=== PATIENT | male | born 1970 | race Caucasian/White ===

== ENCOUNTER 2021-05-11 10:58 | Inpatient (IN) ==
--- NOTE | 2021-04-30 10:25 | Anesthesiology Consultation ---
Date of Service April 30, 2021 Assessment & Plan (1) Encounter for pre-operative examination: Chart Review Chart Review: Acceptable Risk for Surgery and Patient NOT seen in Pre Admission Testing History Surgery Operation Date: 05/11/21 12:25 Proposed Procedures p L4-S1 Revision Decompression Fusion Spinal Cord Monitoring - Cuco Peace DO Height/Weight Height: 5 ft 7 in Weight: 81.647 kg Allergies Allergy/AdvReac Type Severity Reaction Status Date / Time No Known Allergies Allergy Verified 04/29/21 14:54 Medications Home Medications Medication Instructions Recorded Confirmed Last Taken multivitamin 1 tab PO QAM 04/29/21 04/29/21 Unknown psyllium husk 3.4 gram/5.4 gram 1 tsp PO TID 04/29/21 04/29/21 Unknown oral powder (Metamucil) Past Medical History Medical History Back pain Past Family History Family History Other No known health problems Past Surgical History Surgical History History of cholecystectomy History of discectomy LUMBAR History of tonsillectomy History of vasectomy Social History Smoking Status: Former smoker Do You Dip or Chew Tobacco: No Smoking End Date: QUIT 21 YRS AGO Hx Alcohol Use: No Hx Substance Use: No Lab Results Anesthesia Preop Results Results Anesthesia Widget: WBC 10.26 K/uL (4.8-10.8) 04/29/21 Hgb 17.7 g/dL (14.0-18.0) 04/29/21 Hct 50.3 % (42-52) 04/29/21 Plt 268 K/uL (130-400) 04/29/21 Na 139 mmol/L (136-145) 04/29/21 K 4.3 mmol/L (3.5-5.1) 04/29/21 Cl 106 mmol/L (98-107) 04/29/21 CO2 26 mmol/L (21-32) 04/29/21 BUN 12 mg/dl (7-18) 04/29/21 Creat 1.05 mg/dl (0.6-1.4) 04/29/21 Glucose Level 103 mg/dl (70-99) H 04/29/21 PT 9.8 Seconds (9.0-12.0) 04/29/21 INR 1.0 (0.9-1.1) 04/29/21 Urine Color Yellow 04/29/21 Urine Appearance Clear (Clear) 04/29/21 Urine pH 5.5 (4.5-7.5) 04/29/21 Urine Specific [place] 1.018 (1.000-1.030) 04/29/21 Urine Protein Negative (Negative) 04/29/21 Urine Glucose (UA) Negative (Negative) 04/29/21 Urine Ketones Negative (Negative) 04/29/21 Urine Blood Negative (Negative) 04/29/21 Urine Nitrite Negative (Negative) 04/29/21 Urine Bilirubin Negative (Negative) 04/29/21 Urine Urobilinogen Negative (Negative) 04/29/21 Urine Leukocyte Esterase Negative (Negative) 04/29/21 Blood Type O Positive 04/29/21 Antibody Screen NEGATIVE 04/29/21 Testing Electrocardiogram Date: 04/29/21 Normal sinus rhythm, 60 bpm. Chest X-Ray Date: 04/29/21 No acute process.
--- NOTE | 2021-05-10 11:37 | History & Physical Report ---
Date of Service May 10, 2021 Assessment & Plan (1) Lumbar disc herniation with radiculopathy: Plan: Assessment recurrent lumbar disc herniation on the left with severe radiculopathy. Plan at this time is finished its course of nonoperative care still markedly limited and is requiring surgical intervention. Will require a L4-S1 revision decompression fusion. Hopefully this will help with his severe radiculopathy and halt the progression of neuro deficit. History of Present Illness Chief Complaint: Back and left leg pain Primary Care Provider: NO PCP This is a 51-year-old male presents with marked clinical status bleeding in January of this year after an injury at work. Describes significant left lower ex tremity pain numbness and tingling. It is markedly limiting in nature. He has been unable to work. He has failed extensive course of nonoperative care. Allergies Allergy/AdvReac Type Severity Reaction Status Date / Time No Known Allergies Allergy Verified 04/29/21 14:54 Home Medications Medication Instructions Recorded Confirmed Type multivitamin 1 tab PO QAM 04/29/21 04/29/21 History psyllium husk 3.4 gram/5.4 gram 1 tsp PO TID 04/29/21 04/29/21 History oral powder (Metamucil) Past Med/Surg History Medical History Back pain Surgical History History of cholecystectomy History of discectomy LUMBAR History of tonsillectomy History of vasectomy Family History Other No known health problems Social History (Updated 04/29/21 @ 15:16 by Dia Richardson RN) Smoking Status: Former smoker Smoking End Date: QUIT 21 YRS AGO; Second Hand Exposure: Yes (FATHER SMOKED); Do You Dip or Chew Tobacco: No; Hx Alcohol Use: No Hx Substance Use: No Preferred Language: Ghanaian Communication Ability: Effective Commodities Manager Required: No Beliefs That Will Affect Care: None Current Living Situation: Spouse and Family current occupational status: employed current occupation: ASSISTANT VICE PRESIDENT Other Information That Helps Us Care for You: No Feels Safe at Home: Yes Safety Concerns: Feels Safe At This Time Assistive Devices: None Physical Exam Physical Exam: Patient is alert and oriented Heart regular rhythm Lungs clear to auscultation Patient does exhibit positive tension signs on the left with a 4-/5 left dorsiflexion extensor hallucis longus compared to 5 5 on the right.
[~2021-05-11 10:58] MED LIST: ACETAMINOPHEN 500 MG TAB PO SCH; CeleBREX 200 MG CAP PO SCH; DEXAMETHASONE SOD INJ 4 MG/ML VIAL ONE; GABAPENTIN 900 MG DOSE PO SCH; LIDOCAINE 2% 2 ML VIAL/AMP(20MG/ML) INFIL ONE; MIDAZOLAM HCL 1 MG/ML 2ML VIAL ONE; ONDANSETRON INJ 2 MG/ML 2 ML VIAL ONE; PROPOFOL IV EMULSION 10 MG/ML 20 ML VIAL IV ONE; ROCURONIUM BROMIDE 10 MG/ML 5 ML VIAL IV ONE; ceFAZolin 2000MG 2,000 MG/15 ML SYR IV SCH; fentaNYL citrate 100 MCG/2 ML VIAL ONE
[2021-05-11] MEDS ORDERED: ACETAMINOPHEN 500 MG TAB ONE (11:12)
[2021-05-11] MEDS ORDERED: CeleBREX 200 MG CAP ONE (11:13)
[2021-05-11] MEDS ORDERED: GABAPENTIN 300 MG CAP ONE (11:13)
[2021-05-11] MEDS ORDERED: ATROPINE SULFATE 0.1 MG/ML 10ML SYR IV PRN (11:17)
[2021-05-11] MEDS ORDERED: ePHEDrine sulfate 50 MG/ML AMP IV PRN (11:17)
[2021-05-11] MEDS ORDERED: fentaNYL citrate 100 MCG/2 ML VIAL IV PRN (11:17)
[2021-05-11] MEDS ORDERED: HYDROmorphone INJ 1 MG/ML SYRINGE IV PRN ×2 (11:17→16:09)
[2021-05-11] MEDS ORDERED: ONDANSETRON INJ 2 MG/ML 2 ML VIAL IV PRN ×2 (11:17→16:09)
[2021-05-11] MEDS ORDERED: BUPIVACAINE 0.5 % 5 MG/1 ML MPF 30ML VIAL ONE (11:42)
[2021-05-11] MEDS ORDERED: EPINEPHrine INJ 1 MG/ML AMP ONE (11:42)
--- NOTE | 2021-05-11 11:42 | History & Physical Bridge Note ---
Date of Service May 11, 2021 History & Physical Bridge Note I have examined the patient, reviewed the History & Physical and in the interval since the performance of the History & Physical I have noted the following changes of clinical significance: no changes noted
[2021-05-11 11:46] LABS: Partial Thromboplastin Time 26.2 Seconds (21.0-31.0)
[2021-05-11] MEDS: LR 500ML BOLUS, THEN 15ML/HR IV SCH (11:47)
[2021-05-11] MEDS ORDERED: KETAMINE 50 MG/5 ML SYRINGE ONE (12:31)
[2021-05-11] MEDS ORDERED: HYDROmorphone INJ 2 MG/ML SYR/VIAL ONE (12:48)
[2021-05-11] MEDS ORDERED: ROCURONIUM BROMIDE 10 MG/ML 5 ML VIAL IV ONE ×2 (12:53)
[2021-05-11] MEDS ORDERED: FLOSEAL HEMOSTATIC MATRIX 10ML TOP ONE (12:59)
--- NOTE | 2021-05-11 14:10 | Operative Report ---
Post Operative Report Pre & Post Diagnosis Operation Date: 05/11/21 12:25 Pre-Op Diagnosis: L4-S1 Lumbar disc Herniation with Radiculopathy Post-Op Diagnosis: L4-S1 Lumbar disc Herniation with Radiculopathy I identified the patient and participated in the time-out.: Yes Procedure Operation Date: 05/11/21 12:25 Actual Procedures #1 revision decompression with bilateral medial facetectomies and foraminotomies L4-5 L5-S1. #2 posterior spinal fusion L4-5 L5-S1. #3 placement of posterior instrumentation L4-5 L5-S1. #4 interbody fusion L4-5 L5-S1. #5 placement peek cage 14 x 26 mm at L for L5 and 12 x 26 mm at L5-S1. #6 placement of locally harvested morselized autograft in the posterior gutters. #7 placement of I factor combined with Vitoss in the interbody space and posterior lateral gutters. Surgeon Cuco Peace, Printed Circuit Layout Taper Mariah Saldaña Estimated Blood Loss 100 Findings Consistent with Post-Op Diagnosis Specimens None Indications This is a 51-year-old male who presents with above-mentioned diagnosis after failing course of nonoperative care is here for surgical invention. Description of Procedure Patient was met with identified informed consent obtained. Patient was then taken to the operative suite underwent intubation placed in a prone position the Tyron table top Zaid frame. All bony prominences well-padded eyes inspected to ensure no external pressure placed upon the bed at this point, spine is prepped and draped in a sterile fashion. Utilizing the previous incision site sharp dissection with assistance of Bovie cautery was performed down to and exposing the remaining lamina and transverse processes of L4-L5 and the sacral ala bilaterally. From a caudal cephalad fashion revision complete laminectomy of L5 and L4 was performed including bilateral medial facetectomies and foraminotomies addressing all stenosis. Also identified evidence of a herniated free fragment at L5-S1 the left. After complete decompression pedicle screws were placed in L4-L5 and S1 levels bilaterally with assistance of fluoroscopy and appropriately sized dena placed. By way of a transforaminal approach on the left complete discectomy of L5-S1 was performed endplates curetted to subcortical being bone and a 12 x 26 mm peek cage filled with I factor tapped in position. Then proceeded L4-L5 and again by way of a transforaminal portion left complete discectomy performed endplates curetted to subcortically bone and a 14 x 26 mm peek cage filled with I factor tapped in position. The rods were then compressed locked into final position bilaterally. The transverse processes of L4 and L5 and the sacral ala burred to subcortically bone. I factor combined with Vitoss and locally harvested morselized autograft was placed in the posterior gutters. 15 round MELANIE drain inserted. Incision then closed with 1 Vicryl to fascia 2-0 Vicryl subcutaneously and 4 Monocryl for final skin closure. Steri-Strip sterile dressings placed. Patient will continue PACU stable condition. Please note spinal cord monitoring visualized at the procedure no changes noted. Lastly Mariah Saldaña was present at the entire procedure and while the patient positioning complex portions of the surgery and final skin closure. I attest to the content of the Intraoperative Record and any orders documented therein. Any exceptions are noted below.
--- NOTE | 2021-05-11 14:18 | Fluoroscopy Report ---
FL lumbar spine 2-3V CLINICAL HISTORY: L4-S1 DECOMPRESSION AND FUSION COMPARISON STUDY: None. FLUOROSCOPY TIME: 18 seconds. FINDINGS: 2 fluoroscopic spot images of the lumbar spine demonstrate posterior decompression and fusi on from L4 through S1 with pedicle screws and rods. The hardware is intact. Disc spaces are in place. IMPRESSION: Fluoroscopy provided for L4-S1 posterior decompression and fusion ACT 112: Negative or not required by law. Electronically signed by: Rodrigo Valle M.D. 05/11/2021 2:16 PM
--- NOTE | 2021-05-11 15:04 | Anesthesiology Progress Note ---
Date of Service May 11, 2021 Anesthesia Post Procedure Vital Signs Vital Signs: Temp Pulse Pulse Resp BP BP Pulse Ox 05/11/21 15:00 97.5 F L 73 14 122/83 94 05/11/21 14:50 72 12 124/83 94 05/11/21 14:40 71 12 117/83 96 05/11/21 14:30 86 12 115/72 98 05/11/21 14:21 96.8 F L 96 H 18 117/91 96 05/11/21 11:34 98.2 F 75 20 141/90 H 96 Pain Intensity Back: Pain Intensity: 2 Transfer of Care Handoff Completed per policy Notes Mental Status: alert / awake / arousable and participated in evaluation Patient Amnestic to Procedure: Yes Nausea / Vomiting: adequately controlled Pain: adequately controlled Airway Patency, RR, SpO2: stable & adequate BP & HR: stable & adequate Hydration State: stable & adequate Anesthetic Complications: no major complications apparent and Pt Satisfied with anesthetic care
[2021-05-11] MEDS ORDERED: LORazepam 0.5 MG/1 ML VIAL IV PRN (16:09)
[2021-05-11] MEDS ORDERED: ONDANSETRON 4 MG OD TAB PO PRN (16:09)
[2021-05-11] MEDS ORDERED: ACETAMINOPHEN 500 MG TAB PO PRN (16:09)
[2021-05-11] MEDS ORDERED: traMADol HCL 50 MG TABLET PO PRN (16:09)
[2021-05-11] MEDS ORDERED: hydrOXYzine HCl 25 MG TAB PO PRN (16:09)
[2021-05-11] MEDS ORDERED: FAMOTIDINE 20 MG TAB PO PRN (16:09)
[2021-05-11] MEDS ORDERED: DO NOT ADMINISTER FLU VACCINE PRN (16:09)
[2021-05-11] MEDS ORDERED: HYDROmorphone INJ 0.5 MG/0.5 ML SYR IV PRN (16:09)
[2021-05-11] MEDS ORDERED: bisacodyL 10 MG SUPP PR PRN (16:09)
[2021-05-11] MEDS ORDERED: MAGNESIUM HYDROXIDE SUSP 30 ML UDC PO PRN (16:09)
[2021-05-11] MEDS ORDERED: NALOXONE HCL 0.4 MG/1 ML VIAL/CARP IV PRN (16:09)
[2021-05-11] MEDS ORDERED: PROMETHAZINE HCL 12.5 MG in SODIUM CHLORIDE 0.9% 50 ML IV PRN (16:09)
[2021-05-11] MEDS ORDERED: DO NOT ADMINISTER PNEUMOCOCCAL VACCINE PRN (16:09)
[2021-05-11] MEDS ORDERED: ACETAMINOPHEN 1,000 MG/100 ML VIAL IV PRN (16:09)
[2021-05-11] MEDS ORDERED: diphenhydrAMINE Capsule 25 MG CAP PO PRN (16:09)
[2021-05-11] MEDS ORDERED: METOCLOPRAMIDE HCL INJ 5 MG/ML 2 ML VIAL IV PRN (16:09)
[2021-05-11] MEDS ORDERED: ALUMINUM/MAGNESIUM SUSP 30 ML UDC PO PRN (16:09)
[2021-05-11] MEDS ORDERED: SOD PHOSPHATE/SOD BIPHOSPHATE ENEMA 132 ML BTL PR PRN (16:09)
[2021-05-11] MEDS: LACTATED RINGER'S 1,000 ML IV SCH (16:47)
[2021-05-11] MEDS: KETOROLAC 30 MG/ML VIAL IV SCH ×2 (16:48→23:03)
[2021-05-11] MEDS: DOCUSATE SODIUM/SENNA 50/8.6MG TAB PO SCH (19:52)
[2021-05-11] MEDS: ceFAZolin 2000MG 2,000 MG/15 ML SYR IV SCH (19:53)
[2021-05-11] MEDS: LORazepam 0.5 MG TAB PO PRN (23:03)
[2021-05-12] MEDS: LACTATED RINGER'S 1,000 ML IV SCH (01:53)
[2021-05-12] MEDS: ceFAZolin 2000MG 2,000 MG/15 ML SYR IV SCH (03:59)
[2021-05-12] MEDS: KETOROLAC 30 MG/ML VIAL IV SCH ×2 (04:00→10:56)
[2021-05-12] MEDS: POLYETHYLENE (MIRALAX) 17 GM PACK PO SCH ×3 (05:57→20:18)
[2021-05-12] MEDS: LR 500ML BOLUS, THEN 15ML/HR IV SCH (06:01)
[2021-05-12 06:59] LABS: Basophils # (auto) 0.01 K/uL (0-0.2); Hemoglobin 14.8 g/dL (14.0-18.0); Immature Granulocytes # (auto) 0.07 K/uL (0.00-0.02); Immature Granulocytes % (auto) 0.3 %; Lymphocytes % (auto) 5.6 %; Mean Corpuscular Hgb Conc 35.2 g/dL (32-36); Mean Corpuscular Volume 88.1 fL (80-100); Mean Platelet Volume 9.4 fL (7.4-10.4); Monocytes # (auto) 1.57 K/uL (0.11-0.59); Monocytes % (auto) 7.4 %; Neutrophils # (auto) 18.46 K/uL (1.4-6.5); Neutrophils % (auto) 86.7 %; Platelet Count 267 K/uL (130-400); RDW Coefficient of Variation 13.3 % (11.5-14.5); RDW Standard Deviation 43.2 fL (36.4-46.3); Red Blood Count 4.77 M/uL (4.7-6.1); White Blood Count 21.31 K/uL (4.8-10.8)
[2021-05-12 07:31] LABS: BUN Creatinine Ratio 17.3 (10-20); Calcium 8.9 mg/dl (8.5-10.1); Creatinine Clr Calc Pharmacy 92.2 ml/min; Est GFR (African American) 100.8 ml/min; Est GFR (Non-African American) 86.9 ml/min; Potassium 4.6 mmol/L (3.5-5.1)
--- NOTE | 2021-05-12 08:06 | Orthopedic Progress Note ---
Date of Service May 12, 2021 Assessment & Plan (1) Lumbar disc herniation with radiculopathy: Plan: At this time initiate physical therapy monitor his MELANIE output possible discharge home or Monday. Admission and Anticipated Discharge Date Admission Date: May 11, 2021 Subjective Back pain controlled leg symptoms markedly improved Physical Exam Physical Exam: Patient is comfortable sitting in bed. Is good strength testing. Results & Data ([facility]) Vital Signs (Past 12 Hours) Vital Signs Temp Pulse Resp BP Pulse Ox 05/12/21 07:40 36.6 C 71 16 110/71 98 05/12/21 04:06 36.5 C 66 16 100/62 93 05/11/21 22:39 36.5 C 84 15 125/85 95
[2021-05-12] MEDS: MULTIVITAMIN TAB PO SCH (09:17)
[2021-05-12] MEDS: LORazepam 0.5 MG TAB PO PRN (19:51)
[2021-05-12] MEDS: oxyCODONE HCL IR 5 MG TAB (IMMEDIATE RELEASE) PO PRN (19:51)
[2021-05-12] MEDS: DOCUSATE SODIUM/SENNA 50/8.6MG TAB PO SCH (20:18)
[2021-05-13] MEDS: oxyCODONE HCL IR 5 MG TAB (IMMEDIATE RELEASE) PO PRN ×2 (04:37→09:04)
[2021-05-13] MEDS: MULTIVITAMIN TAB PO SCH (07:36)
--- NOTE | 2021-05-13 08:24 | Discharge Summary ---
Date of Service May 13, 2021 Admission HPI Per Admitting Provider This is a 51-year-old male presents with marked clinical status bleeding in January of this year after an injury at work. Describes significant left lower extremity pain numbness and tingling. It is markedly limiting in nature. He has been unable to work. He has failed extensive course of nonoperative care. Admission Exam (Per Admitting) Constitutional WD/WN, vitals as above Eyes normal visual garay by confrontation ENMT external ear and nose normal, oropharynx normal Neck normal visual inspection Respiratory normal respiratory effort Cardiovascular Extremities: normal capillary refill Gastrointestinal (Abdomen) Inspection/Auscultation: abdomen normal to inspection Musculoskeletal no cyanosis or clubbing, extremities motor strength 5/5 Extremities: extremities normal to inspection and strength 5/5 throughout Skin no rashes, warm and dry Neurologic normal touch/pain/proprioception and moves all extremities Psychiatric A+Ox3, euthymic affect Discharge Data Procedures Performed Operation Date: 05/11/21 12:25 Actual Procedures p L4-S1 Revision Decompression and Fusion with Applicaiton of iFactor Bone Graft; Interbody Cage L4-L5 and L5-S1, Spinal Cord Monitoring(Not Applicable) - Cuco Peace DO Hospital Course (1) Lumbar disc herniation with radiculopathy: Patient had an uneventful hospital course being discharged home on postoperative day 2 status post revision decompression instrumented fusion L4- S1. He has had a bowel movement. He is up and ambulatory. He is making great progress in physical therapy. Lab values have been stable. Lower extremity symptoms have resolved. Back pain is controlled. Discharge Instructions ACTIVITY RECOMMENDATIONS: SELF CARE INSTRUCTIONS AFTER THORACIC/LUMBAR FUSIONS 1. You may walk to your tolerance. It is good exercise for your legs and back. Expect some back and intermittent leg aches and pains. 2. You may perform "counter-top" level activities (make a sandwich, jaya with a project, etc.). 3. No bending or lifting of more than 10 pounds or back twisting of any nature (roll like a log when turning in bed). 4. You may ride in a car for 20-30 minutes at a time. No driving until after your first visit with your doctor. 5. Frequent changes of position and restricting sitting to 30 minutes at a time will help limit the amount of back spasms and stiffness you may experience. 6. You may discontinue the use of ambulatory aids (cane, crutches, etc.) once your strength and confidence allow. 7. You may grain mill products inspector the shower and let water strike your incision when you arrive home at least once daily. Do not take a tub bath, sit in a hot tub or go into a swimming pool until after your first recheck in the office. SPECIAL CARE INSTRUCTIONS: VERY IMPORTANT TO READ AND REVIEW A. Your surgical incision has been closed with a cosmetic suture under the skin that will dissolve in about 6 weeks. In 14 days, you can use a pair of clean scissors and cut the suture that is left outside of the skin at the ends of your incision. 1. The small skin tapes can be removed 7 days after surgery if they have not fallen off by that point. 2. You may keep the wound open to air as much as possible to promote healing after post-op day number 5 unless told otherwise by your doctor. 3. If you think the wound looks like it is becoming infected (redness or worsening drainage) and/or you are experiencing fever, chill or worsening back pain and muscle spasms, contact the office so that we may evaluate you as soon as possible. B. Complications are uncommon, but please contact us if you have any signs or symptoms of: 1. wound infection (fever higher than 102.5 degrees F, redness, separation of wound, drainage, or increasing pain from the incision) 2. blood clots in legs (pain, swelling, redness and warmth in legs) 3. urinary tract infection (fever higher than 102.5 degrees F, burning upon urination or increased frequency of urination) 4. nerve problems (inability to walk on your toes or heels, numbness, loss of bowel or bladder control) 5. any other symptoms that concern you C. Please call the office at if you have any concerns or questions about your operation or recovery. D. No smoking! Smoking drastically decreases the chance of a solid fusion. E. Do not take any anti-inflammatory medications (Indocin, Advil, Motrin, Aspirin, Naprosyn, etc.) as these may inhibit the chance of a solid fusion. Tylenol is okay to take for pain. MANAGING PAIN AFTER SPINAL SURGERY 1. Narcotic medication is intended for short-term use and will be provided for surgical pain. Surgical pain usually lasts for a period of 4-6 weeks. Narcotic medication includes Percocet, Vicodin, Darvocet, Tylenol #3 or Lortab. 2. Longer-term pain is more appropriately treated with non-narcotic medication such as Tylenol ES. 3. Muscle spasm is not appropriately treated with narcotics. Muscle relaxers such as Soma, Flexeril or Skelaxin can be used along with Tylenol ES. 4. Remember that we all live with some "aches and pains". This is not unusual or uncommon after an injury or as we get older. a. Back pain is expected and may include muscle spasms for 4 to 6 weeks after surgery. The pain should gradually improve. If the pain worsens for no apparent reason, please contact the office. b. Intermittent leg pain may also be experienced and should not be concerned about unless it worsens for no apparent reason. If so, please contact the office. 5. We will provide appropriate medication within the normal guidelines of their prescribed use. We will also be very cautious and aware of potential abuse and extended duration of patients' medication needs. a. Pain medications are for your comfort and to assist with sleep and rest so that the tissue can heal. They are not provided in order to return to normal activity and should not be used through the day. To do so or worsening pain at night can result from ongoing tissue damage and development of tolerance to the prescribed medicine. 6. Please allow 2-3 days to process refills. Prescriptions will not be mailed but must be picked up at the office. FOLLOW UP VISIT: Keep your scheduled follow-up appointment. Any questions, please call the office at .
[2021-05-13] MEDS ORDERED: dexAMETHasone 8 MG in SYRINGE 0 ML IV SCH (09:00)
--- NOTE | 2021-05-21 09:25 | Coding Query ---
CODING QUERY To promote full compliance with coding requirements relating to patient care, provider participation is requested in all cases of coordinator of placement uncertainty. Please assist us with the question(s) below: Coding Question(s): There is documentation of Lumbar disc herniation with radiculopathy in the record and L4-S1 Lumbar disc Herniation with Radiculopathy on the Operative Report and the H&P documents, "This is a 51-year-old male presents with marked clinical status bleeding in January of this year after an injury at work. Describes significant left lower extremity pain numbness and tingling. It is markedly limiting in nature. He has been unable to work. He has failed extensive course of nonoperative care". Please specify below, in your clinical opinion, regarding the L4 -S1 Lumbar disc Herniation with Radiculopathy. ( x) due to trauma from injury at work ( ) Not due to trauma ( ) Other: Please Specify Physician's Response(s): Thank you Brielle Murrell Principal Diagnosis: "that condition established after study, to be chiefly responsible for occasioning the admission of the patient to the hospital for care." Co-Existing Principal Diagnosis: "when two or more diagnoses equally meet the criteria for principal diagnosis as determined by the circumstances of admission, diagnostic work up, and/or therapy provided, and the Alphabetic Index, Tabular List, or another coding guideline does not provide sequencing direction, any one of the diagnoses may be sequenced first." "When the physician has documented what appears to be a current diagnosis in the body of the record, but has not included the diagnosis in the final diagnostic statement, the physician should be asked whether the diagnosis should be added." (Source Coding [facility] 2 QTR90. p3-4) CATHERINED
== END 2021-05-13 11:07 | disposition home or self-care (01) | DRG 455 ==
LOC: ASU 10:58 → 3E 14:12